=== PATIENT | male | born 1990 | race Caucasian/White ===

== ENCOUNTER 2016-08-17 01:38 | Emergency (ER) | payer SELFPAY ==
[~2016-08-17] VITALS: Ht 175.3 cm; Wt 66.0 kg
[~2016-08-17 01:38] MED LIST: AUGMENTIN500 MG PO; CLONIDINE HCL0.1 MG PO; ERYTHROMYC1 APPLICAT LEFT EYE; FLEXERIL10 MG PO; FLONASE16 G1 BOTH NARES; HYDROCODON-ACE1 EAC7 PO; MOTRIN800 MG PO; PREDNISONE50 MG PO; TRAZODONE HCL50 MG PO; VENTOLIN HFA18 GM IH; ZANTAC150 MG PO; ZITHROMAX Z-PA250 MG PO; ZOFRAN4 MG PO
[2016-08-17 01:58] LABS: MCHC 35.9 G/DL (30.0-36.0); MCV 83.7 FL (86-99); MEAN PLAT.VOLUME 8.7 uM^3 (9.0-12.4); PLATELET COUNT 289 K/uL (156-360); RBC DIS.WIDTH-CV 13.2 % (11.8-14.6); RBC DIS.WIDTH-SD 39.8 % (39-53); WHITE BLOOD COUNT 9.3 K/uL (4.1-10.2)
[2016-08-17 02:08] LABS: CHLORIDE 102 mEq/L (99-109); POTASSIUM 3.4 mEq/L (3.7-5.4); SODIUM 139 mEq/L (136-147)
[2016-08-17 02:09] LABS: GLUCOSE 102 mg/dL (70-99)
[2016-08-17 02:11] LABS: ANION GAP 10 MEQ/L (2-14)
[2016-08-17 02:13] LABS: GFR ESTIMATE (CALCULATED) > 59 mL/min/
[2016-08-17 02:13] LABS: ADD MIUA? YES; BILIRUBIN SMALL; BLOOD NEGATIVE; COLOR AMBER ((YELLOW)); GLUCOSE (STRIP) NEGATIVE; KETONES 5; LEUKOCYTES NEGATIVE; NITRITE NEGATIVE; PROTEIN (STRIP) 30; SPECIFIC GRAVITY 1.031 (1.000-1.030)
[2016-08-17 02:14] LABS: UREA NITROGEN (BUN) 11 mg/dL (9-23)
[2016-08-17 02:21] LABS: BACTERIA RARE /HPF; EPITHELIAL CELLS RARE /HPF; MUCUS 4+ /LPF; RED BLOOD CELLS 0-5 /HPF (0-5); UCUL ADDED? NO; WHITE BLOOD CELLS 0-5 /HPF (0-5)
[2016-08-17 03:37] LABS: TOTAL BILIRUBIN 0.3 mg/dL (0.0-1.0)
[2016-08-17 03:38] LABS: ALKALINE PHOSPHATASE 70 IU/L (3-129)
[2016-08-17 03:41] LABS: DIRECT BILIRUBIN 0.2 mg/dL (0.0-0.3)
[2016-08-17 03:42] LABS: LIPASE 17 U/L (1.0-51.0)
[2016-08-17] MEDS ORDERED: ZOFRAN8 MG PO (03:57)
[2016-08-17] MEDS ORDERED: FLOMAX0.4 MG PO (03:57)
[2016-08-17 04:41] VITALS: BP 113/72
== END 2016-08-17 04:45 | disposition home or self-care (01) ==
LOC: EME 01:38
DX: R10.9 Unspecified abdominal pain (principal); R39.11 Hesitancy of micturition; E87.6 Hypokalemia; R11.2 Nausea with vomiting, unspecified; Z87.442 Personal history of urinary calculi; F17.200 Nicotine dependence, unspecified, uncomplicated; Z71.6 Tobacco abuse counseling; Z88.6 Allergy status to analgesic agent
CPT/HCPCS: 74176; 80048; 80076; 81003; 83690; 85027; 99281; 99285; J1885; J2405; J7030